=== PATIENT | female | born 1985 | race Caucasian/White ===

== ENCOUNTER 2021-10-19 05:10 | Inpatient (IN) ==
[2021-10-19] MEDS ORDERED: OXYTOCIN 30 UNITS/500 ML BAG IV PRN ×3 (05:46→14:31)
[2021-10-19] MEDS ORDERED: BUTORPHANOL TARTRATE 1 MG/ML VIAL IV STA (05:51)
[2021-10-19 06:09] LABS: Hematocrit (blood only) 29.9 % (34.1-44.9); Hemoglobin 9.8 g/dl (12.0-16.0); Mean Corpuscular Hgb Conc 32.8 g/dL (32.0-36.0); Mean Corpuscular Volume 91.4 fL (80.0-100.0); Mean Platelet Volume 11.1 fL (9.4-12.3); Platelet Count 232 K/uL (130-400); RDW Coefficient of Variation 12.6 % (11.5-14.5); RDW Standard Deviation 41.9 fL (36.4-46.3); Red Blood Count 3.27 M/uL (3.93-5.22); White Blood Count 11.66 K/ul (4.8-10.8)
[2021-10-19] MEDS: LACTATED RINGER'S 1,000 ML IV PRN ×2 (06:37→07:40)
[2021-10-19] MEDS ORDERED: fentaNYL citrate 100 MCG/2 ML VIAL ONE (07:09)
[2021-10-19] MEDS ORDERED: ePHEDrine sulfate 50 MG/ML AMP ONE (07:09)
[2021-10-19] MEDS ORDERED: BUPIVACAINE 0.25% 30 ML VIAL ONE (07:09)
[2021-10-19] MEDS ORDERED: LIDOCAINE 2%/EPINEPHRINE 1:200,000 20 ML SDV ONE (07:09)
[2021-10-19] MEDS ORDERED: SODIUM CHLORIDE 0.9% INJ 10 ML VIAL ONE (07:09)
[2021-10-19] MEDS ORDERED: fentaNYL 2MCG/ML ROPIVACAINE 1.25MG/ML 100 ML BAG EPI ONE (07:10)
--- NOTE | 2021-10-19 07:23 | History & Physical Report ---
Date of Service October 19, 2021 Assessment & Plan (1) Spontaneous rupture of amniotic membranes: Plan: 36-year-old at 40 weeks and 6 days of gestation presenting with spontaneous rupture of membranes, regular painful contractions and active labor Vital signs stable afebrile, heart rate reassuring, GBS negative, Plan to monitor, IV fluids, epidural for pain (2) Active labor at term: (3) Advanced maternal age (AMA) in : Admission and Anticipated Discharge Date Admission Date: October 19, 2021 History of Present Illness Primary Care Provider: NO PCP Patient is a 36-year-old G1, P0 at 40 weeks and 6 days of gestation who presented to labor and delivery with spontaneous rupture of membranes which happened around 4 AM and then regular painful contractions. Her cervix was found to be 4 cm dilated, 80% effaced head at -2 station and she was admitted for active labor. She is very painful, Stadol IV has not helped and asking for epidural. Her has been uncomplicated except advanced maternal age, negative/low risk for testing, normal ultrasound per [facility]. GBS is negative. Allergies Allergy/AdvReac Type Severity Reaction Status Date / Time amoxicillin Allergy Hives Verified 10/19/21 05:38 clindamycin Allergy Hives Verified 10/19/21 05:40 sulfamethoxazole Allergy Hives Verified 10/19/21 05:39 [From Bactrim] trimethoprim [From Bactrim] Allergy Hives Verified 10/19/21 05:39 Patient History Medical History Anxiety Surgical History No history of previous surgery Social History Smoking Status: Never smoker Hx Alcohol Use: No Hx Substance Use: No Preferred Language: Maori Communication Ability: Effective Kennel Assistant Required: No Beliefs That Will Affect Care: None marital status: Single Current Living Situation: Significant Other Current Living Situation Comment: Isaiah Crespo Other Information That Helps Us Care for You: No Feels Safe at Home: Yes Safety Concerns: Feels Safe At This Time Assistive Devices: None RN SUPPORT SERVICES History No history of STDs, no history of chlamydia, gonorrhea, herpes. Review of Systems as per Subjective / HPI Physical Exam Constitutional: WD/WN, vitals as above well developed, well nourished and + acute distress (Crying in pain with contractions) Gastrointestinal (Abdomen): normal bowel sounds, soft, nontender, no hepatosplenomegaly (Gravid, Gennaro's and 1/2 pounds) Genitourinary: normal external appearance (Gross leaking of amniotic fluid, clear) OB Exam Abdomen: + vertex Manual OB Exam: + cervical dilation 4 cm, + cervical effacement 90% and + station -2 OB Exam Monitor Tracing: + external uterine monitor used (Contractions every 3 minutes) and + category I Results & Data ([facility]) Vital Signs (Past 12 Hours) Vital Signs Temp Pulse Resp BP 10/19/21 05:26 61 122/69 10/19/21 05:27 36.7 C 18 Laboratory Results Lab Results 10/19/21 Range/Units 05:57 WBC 11.66 H (4.8-10.8) K/ul RBC 3.27 L (3.93-5.22) M/uL Hgb 9.8 L (12.0-16.0) g/dl Hct 29.9 L (34.1-44.9) % MCV 91.4 (80.0-100.0) fL MCH 30.0 (25.0-34.0) pg MCHC 32.8 (32.0-36.0) g/dL RDW Std Deviation 41.9 (36.4-46.3) fL RDW Coeff of Sheron 12.6 (11.5-14.5) % Plt Count 232 (130-400) K/uL MPV 11.1 (9.4-12.3) fL
[2021-10-19] MEDS ORDERED: ONDANSETRON INJ 2 MG/ML 2 ML VIAL IV PRN (07:42)
[2021-10-19] MEDS ORDERED: ePHEDrine sulfate 50 MG/ML AMP IV PRN (07:42)
[2021-10-19] MEDS ORDERED: NALOXONE HCL 1 MG in SODIUM CHLORIDE 0.9% 1000ML 1,000 ML IV PRN (07:42)
[2021-10-19] MEDS ORDERED: NALBUPHINE HCL INJ 10 MG/ML AMP IV PRN (07:42)
[2021-10-19] MEDS ORDERED: NALOXONE HCL 0.4 MG/1 ML VIAL/CARP IV PRN (07:42)
[2021-10-19] MEDS ORDERED: PROMETHAZINE HCL 6.25 MG in SODIUM CHLORIDE 0.9% 50 ML IV PRN (07:42)
[2021-10-19] MEDS ORDERED: diphenhydrAMINE 50 MG/ML VIAL IV PRN (07:42)
[2021-10-19] MEDS ORDERED: fentaNYL 2MCG/ML ROPIVACAINE 1.25MG/ML 100 ML BAG EPI PRN (07:42)
--- NOTE | 2021-10-19 14:03 | Anesthesia Procedure Note ---
Date of Service October 19, 2021 Anesthesia Post Epidural Note Vital Signs Vital Signs: Temp Pulse Resp BP Pulse Ox 37.0 C 107 H 18 132/70 100 10/19/21 12:00 10/19/21 13:59 10/19/21 13:01 10/19/21 13:59 10/19/21 13:57 Notes Mental Status: alert / awake / arousable Nausea / Vomiting: adequately controlled Pain: adequately controlled Airway Patency, RR, SpO2: stable & adequate BP & HR: stable & adequate Hydration State: stable & adequate Neuraxial Anesthesia: was administered and sensory block is resolving Anesthetic Complications: no major complications apparent and Pt Satisfied with anesthetic care Epidural: Removed without complications and With tip intact
[2021-10-19] MEDS ORDERED: DIPHTHERIA/TETANUS/PERTUSSIS 0.5 ML SYR/VIAL IM ONE (14:31)
[2021-10-19] MEDS ORDERED: ACETAMINOPHEN 325 MG TAB PO PRN (14:31)
[2021-10-19] MEDS ORDERED: HYDROCORTISONE ACETATE 25 MG SUPP PR PRN (14:31)
[2021-10-19] MEDS ORDERED: oxyCODONE/ACETAMINOPHEN 5mg/325mg TAB PO PRN (14:31)
[2021-10-19] MEDS ORDERED: bisacodyL 10 MG SUPP PR PRN (14:31)
[2021-10-19] MEDS ORDERED: BENZOCAINE 20% AER SPR 82.5 GM CAN EXT PRN (14:31)
[2021-10-19] MEDS ORDERED: MEASLES, MUMPS & RUBELLA VIRUS VIAL SQ ONE (14:31)
--- NOTE | 2021-10-19 14:39 | Delivery Summary ---
Vaginal Delivery Summary Date of Service October 19, 2021 Vaginal Delivery Summary Patient was found to be fluid dilated and desired to push. She pushed for about an hour and delivered the head without difficulty. The shoulders were delivered with minimal traction, right hand was in flexion position and next to the neck and came out with the shoulders without difficulty. Was handed to the mother, where mouth and nose were suctioned, the cord was clamped times and cut at 1 minute delay. Then the vagina and perineum were checked for lacerations. There was a second degree perineal laceration at the posterior fourchette. It was confirmed with rectal exam and good sphincter tone was noted. The muscles around the external sphincter were held with Allis clamps. The gloves were changed and this was repaired with 2-0 Vicryl with [id number] stitches x2, bringing the perineal body muscles together and reinforcing the sphincter area. Rectal exam was repeated, no sutures were felt and sphincter tone was excellent. The changed and then vaginal mucosa was repaired with 2-0 Vicryl in a running locked fashion and skin in a subcuticular fashion. Excellent hemostasis was achieved. And the placenta was found to be in vagina, delivered spontaneously as intact and complete. Uterus was explored and found to be empty, the lower segment was cleared of all clots and debris's, fundus was firm and EBL was 200 mL. IV oxytocin infusion was started. Patient desired to take 2 placenta home for encapsulation. She agreed to hold this for now until baby is cleared by jd edwards. The mom and baby tolerated procedure well. The sponge needle instrument count was correct x2. The baby was a viable female infant delivered at 1:56 PM, Apgars were 8/9 and weight is pending. No complications happened and I was present during her procedure.
[2021-10-19] MEDS ORDERED: LACTATED RINGER'S 1,000 ML IV SCH (14:45)
--- NOTE | 2021-10-19 17:11 | Anesthesia Procedure Note ---
Date of Service October 19, 2021 Anesthesia Post Epidural Note Vital Signs Vital Signs: Temp Pulse Resp BP Pulse Ox 37.0 C 111 H 16 108/66 98 10/19/21 12:00 10/19/21 16:58 10/19/21 16:30 10/19/21 16:58 10/19/21 14:12 Notes Mental Status: alert / awake / arousable Nausea / Vomiting: adequately controlled Pain: adequately controlled Airway Patency, RR, SpO2: stable & adequate BP & HR: stable & adequate Hydration State: stable & adequate Neuraxial Anesthesia: was administered and sensory block is resolving Anesthetic Complications: no major complications apparent and Pt Satisfied with anesthetic care Epidural: Removed without complications and With tip intact
[2021-10-19] MEDS: DOCUSATE SODIUM 100 MG CAP PO SCH (20:08)
[2021-10-19] MEDS: IBUPROFEN 600 MG TAB PO PRN (22:42)
[2021-10-20 06:27] LABS: Hematocrit (blood only) 23.5 % (34.1-44.9); Hemoglobin 7.5 g/dl (12.0-16.0); Mean Corpuscular Hemoglobin 29.9 pg (25.0-34.0); Mean Corpuscular Hgb Conc 31.9 g/dL (32.0-36.0); Mean Corpuscular Volume 93.6 fL (80.0-100.0); Mean Platelet Volume 11.3 fL (9.4-12.3); Platelet Count 170 K/uL (130-400); RDW Standard Deviation 43.9 fL (36.4-46.3); Red Blood Count 2.51 M/uL (3.93-5.22); White Blood Count 13.34 K/ul (4.8-10.8)
[2021-10-20] MEDS ORDERED: FERROUS SULFATE 325 MG TAB PO SCH (08:00)
[2021-10-20] MEDS: IBUPROFEN 600 MG TAB PO PRN ×3 (08:18→23:59)
[2021-10-20] MEDS: PRENATAL VITAMIN 1 TAB PO SCH (08:18)
[2021-10-20] MEDS: DOCUSATE SODIUM 100 MG CAP PO SCH ×2 (08:18→20:09)
--- NOTE | 2021-10-20 09:30 | Obstetrical Progress Note ---
Date of Service October 20, 2021 Assessment & Plan (1) Term delivered: Plan tent d/c in AM Subjective Ambulation: ambulating normally Voiding: no voiding problems Passing Gas:: Yes Diet Tolerance:: regular diet Lochia:: Small Feeding Type:: breast feeding Current Pain Level(1-10): 0 doing well Physical Exam Constitutional WD/WN, vitals as above Gastrointestinal (Abdomen) normal bowel sounds, soft, nontender, no hepatosplenomegaly abdomen soft and non-tender fundus below U Musculoskeletal Extremities: extremities normal to inspection Skin no rashes, warm and dry Neurologic patellar DTR's 2+ bilat, sensation intact Psychiatric A+Ox3, euthymic affect Results & Data ([facility]) Vital Signs (Past 12 Hours) Vital Signs Temp Pulse Resp BP Pulse Ox O2 Del Method 10/20/21 08:15 36.6 C 73 16 114/71 99 Room Air 10/20/21 03:44 36.5 C 64 16 108/65 100 Room Air 10/19/21 22:40 37.0 C 79 16 118/71 98 Room Air Laboratory Results 10/19/21 10/19/21 10/20/21 05:57 07:15 05:47 WBC 11.66 H RBC 3.27 L Hgb 9.8 L Hct 29.9 L MCV 91.4 MCH 30.0 MCHC 32.8 RDW Std Deviation 41.9 RDW Coeff of Sheron 12.6 Plt Count 232 MPV 11.1 SARS-CoV-2, RNA, NAAT NEGATIVE Blood Type Cancelled Antibody Screen Cancelled Screen Cancelled 10/20/21 05:47 WBC 13.34 H RBC 2.51 L Hgb 7.5 L Hct 23.5 L MCV 93.6 MCH 29.9 MCHC 31.9 L RDW Std Deviation 43.9 RDW Coeff of Sheron 13.0 Plt Count 170 MPV 11.3 SARS-CoV-2, RNA, NAAT Blood Type Antibody Screen Screen
[2021-10-20] MEDS ORDERED: bisacodyL 5 MG TABEC PO SCH (20:00)
--- NOTE | 2021-10-21 06:50 | Obstetrical Progress Note ---
Date of Service October 21, 2021 Subjective Ambulation: ambulating normally Voiding: no voiding problems Passing Gas:: Yes Diet Tolerance:: regular diet Lochia:: Small Feeding Type:: breast feeding Current Pain Level(1-10): 0 doing well Physical Exam Constitutional WD/WN, vitals as above Gastrointestinal (Abdomen) Inspection/Auscultation: abdomen normal to inspection abdomen soft and non-tender fundus firm Musculoskeletal Extremities: extremities normal to inspection no edema. neg Bruce's Skin no rashes, warm and dry Neurologic patellar DTR's 2+ bilat, sensation intact Psychiatric A+Ox3, euthymic affect Results & Data ([facility]) Vital Signs (Past 12 Hours) Vital Signs Temp Pulse Resp BP Pulse Ox O2 Del Method 10/20/21 23:55 Room Air 10/20/21 23:20 36.7 C 77 16 102/67 97 Room Air Laboratory Results 10/19/21 10/19/21 10/20/21 05:57 07:15 05:47 WBC 11.66 H RBC 3.27 L Hgb 9.8 L Hct 29.9 L MCV 91.4 MCH 30.0 MCHC 32.8 RDW Std Deviation 41.9 RDW Coeff of Sheron 12.6 Plt Count 232 MPV 11.1 SARS-CoV-2, RNA, NAAT NEGATIVE Blood Type Cancelled Antibody Screen Cancelled Screen Cancelled 10/20/21 05:47 WBC 13.34 H RBC 2.51 L Hgb 7.5 L Hct 23.5 L MCV 93.6 MCH 29.9 MCHC 31.9 L RDW Std Deviation 43.9 RDW Coeff of Sheron 13.0 Plt Count 170 MPV 11.3 SARS-CoV-2, RNA, NAAT Blood Type Antibody Screen Screen
[2021-10-21 06:53] LABS: Hematocrit (blood only) 20.8 % (34.1-44.9); Hemoglobin 6.6 g/dl (12.0-16.0)
[2021-10-21] MEDS: DOCUSATE SODIUM 100 MG CAP PO SCH (08:06)
[2021-10-21] MEDS: PRENATAL VITAMIN 1 TAB PO SCH (08:06)
[2021-10-21] MEDS: FERROUS SULFATE 325 MG TAB PO SCH ×2 (08:07→08:15)
[2021-10-21] MEDS: IBUPROFEN 600 MG TAB PO PRN (14:21)
== END 2021-10-21 15:20 | disposition home or self-care (01) | DRG 807 ==
LOC: OPB 05:10 → 4S1 05:18 → 4E2 18:14
DX: Z37.0 Single live birth; O42.02 Full-term premature rupture of membranes, onset of labor within 24 hours of rupture; Z88.2 Allergy status to sulfonamides; Z3A.40 40 weeks gestation of pregnancy; Z88.0 Allergy status to penicillin; O09.513 Supervision of elderly primigravida, third trimester; O70.1 Second degree perineal laceration during delivery; Z88.1 Allergy status to other antibiotic agents